=== PATIENT | male | born 1960 | race African-American/Black ===

== ENCOUNTER 2020-10-08 15:06 | Inpatient (IN) | payer OTHER ==
[2020-10-08 16:15] VITALS: BMI 27.8
[2020-10-08] MEDS ORDERED: ACETAMINOPHEN 325 MG TABLET (FP) PO PRN (17:35)
[2020-10-08] MEDS ORDERED: NICOTINE POLACRILEX 2 MG GUM BUC PRN (17:35)
[2020-10-08] MEDS ORDERED: chlordiazePOXIDE HCL 25 MG CAPSULE PO PRN (17:35)
[2020-10-08] MEDS ORDERED: BISMUTH SUBSALICYLATE 524 MG/30 ML UD PO PRN (17:35)
[2020-10-08] MEDS ORDERED: METHOCARBAMOL 500 MG TABLET PO PRN (17:35)
[2020-10-08] MEDS ORDERED: chlordiazePOXIDE HCL 25 MG CAPSULE PO ONE (17:35)
[2020-10-08] MEDS ORDERED: MAGNESIUM HYDROX 2400MG/30ML ORAL SUSPENSION 30 ML CUP PO PRN (17:35)
[2020-10-08] MEDS ORDERED: ONDANSETRON *ODT* 4 MG TABLET SL PRN (17:35)
[2020-10-08] MEDS ORDERED: MAG HYDROX/AL HYDROX/SIMETH 30 ML UNIT-DOSE CUP PO PRN (17:35)
[2020-10-08] MEDS ORDERED: MENTHOL/PHENOL 1 EACH UD MM PRN (17:35)
[2020-10-08] MEDS ORDERED: MAGNESIUM CITRATE 300 ML BOTTLE PO PRN (17:35)
[2020-10-08] MEDS ORDERED: AMMONIUM LACTATE 12% LOTION 225 GM BOTTLE TP PRN (17:41)
[2020-10-08] MEDS ORDERED: PATIENT'S OWN MEDICATION (NON-FORMULARY) (Ipratropium/Albuterol Sulfate 4 GM) IH PRN (17:43)
[2020-10-08] MEDS ORDERED: NITROGLYCERIN SUBLINGUAL 1/150 0.4 MG TAB SL PRN (17:46)
[2020-10-08] MEDS: ACETAMINOPHEN 325 MG TABLET (FP) PO PRN (20:32)
[2020-10-08] MEDS ORDERED: cloNIDine HCL 0.1 MG TABLET PO ONE (21:47)
[2020-10-08] MEDS: chlordiazePOXIDE HCL 25 MG CAPSULE PO SCH (23:01)
[2020-10-08] MEDS: ATORVASTATIN CA 80 MG TABLET (FP) PO SCH (23:01)
[2020-10-08] MEDS: THIAMINE HCL 100 MG TABLET (FP) PO SCH (23:02)
[2020-10-08] MEDS: MELATONIN 5 MG TABLETS PO SCH (23:02)
[2020-10-09] MEDS: chlordiazePOXIDE HCL 25 MG CAPSULE PO SCH ×4 (05:59→22:14)
[2020-10-09] MEDS ORDERED: SACUBITRIL/VALSARTAN 49 MG-51 MG TABLET PO SCH (10:00)
[2020-10-09] MEDS ORDERED: amLODIPine BESYLATE 5 MG TABLET (FP) PO SCH (10:00)
[2020-10-09] MEDS: PRENATAL VITAMINS W/ FOLIC ACID TABLET (FP) PO SCH (10:26)
[2020-10-09] MEDS: ASPIRIN 81 MG CHEWABLE TABLETS PO SCH (10:26)
[2020-10-09] MEDS: NICOTINE 7 MG/24 HOURS TOPICAL PATCH TD SCH (10:27)
[2020-10-09] MEDS: CARVEDILOL 3.125 MG TABLET (FP) PO SCH ×2 (10:27→22:14)
[2020-10-09 11:56] LABS: HEMATOCRIT 37.4 % (35.4-49); HEMOGLOBIN 12.5 GM/dL (11.7-16.9); MCH 33.6 pg (25.7-33.7); MCHC 33.4 g/dl (32.0-35.9); MEAN CELL VOLUME 100.6 fl (80-96); MEAN PLT VOLUME 9.7 fl (7.5-11.1); PLATELET COUNT 203 K/MM3 (134-434); RBC 3.72 M/mm3 (4.00-5.60); RDW 16.5 % (11.9-15.9); WHITE BLOOD COUNT 10.1 K/mm3 (4.0-10.0)
[2020-10-09 12:01] LABS: POTASSIUM 3.8 mmol/L (3.5-5.1)
[2020-10-09 12:20] LABS: CALCIUM 9.2 mg/dL (8.5-10.1)
[2020-10-09 12:21] LABS: ALBUMIN 3.5 g/dl (3.4-5.0); BLOOD UREA NITROGEN 13.3 mg/dL (7-18)
[2020-10-09 12:24] LABS: CREATININE 1.4 mg/dL (0.55-1.3)
[2020-10-09 12:25] LABS: BILIRUBIN,TOTAL 0.5 mg/dL (0.2-1); TOT PROT 6.8 g/dl (6.4-8.2)
[2020-10-09 16:59] LABS: PH,URINE 5.5 (5.0-8.0); URINE APPEARANCE CLEAR; URINE BILIRUBIN NEGATIVE (NEGATIVE); URINE COLOR YELLOW; URINE GLUCOSE (UA) NEGATIVE (NEGATIVE); URINE KETONE NEGATIVE (NEGATIVE); URINE LEUK ESTERASE NEGATIVE (NEGATIVE); URINE NITRITE NEGATIVE (NEGATIVE); URINE PROTEIN NEGATIVE (NEGATIVE); URINE UROBILINOGEN 0.2 mg/dL (0.2-1.0)
[2020-10-09] MEDS: ATORVASTATIN CA 80 MG TABLET (FP) PO SCH (22:14)
[2020-10-09] MEDS: THIAMINE HCL 100 MG TABLET (FP) PO SCH (22:14)
[2020-10-09] MEDS: MELATONIN 5 MG TABLETS PO SCH (22:14)
[2020-10-09] MEDS: ISOSORBIDE MONONITRATE 20 MG TABLET PO SCH ×3 (22:52→23:23)
[2020-10-09] MEDS: DIVALPROEX SODIUM 500 MG TABLET E.C. PO SCH (23:22)
[2020-10-10] MEDS: chlordiazePOXIDE HCL 25 MG CAPSULE PO SCH ×4 (05:59→22:10)
[2020-10-10] MEDS: ISOSORBIDE MONONITRATE 20 MG TABLET PO SCH ×2 (07:27→15:04)
[2020-10-10] MEDS: DIVALPROEX SODIUM 500 MG TABLET E.C. PO SCH (10:14)
[2020-10-10] MEDS: PRENATAL VITAMINS W/ FOLIC ACID TABLET (FP) PO SCH (10:15)
[2020-10-10] MEDS: NICOTINE 7 MG/24 HOURS TOPICAL PATCH TD SCH (10:15)
[2020-10-10] MEDS: SACUBITRIL/VALSARTAN 49 MG-51 MG TABLET PO SCH ×2 (10:17→22:11)
[2020-10-10] MEDS: amLODIPine BESYLATE 10 MG TABLET (FP) PO SCH (10:17)
[2020-10-10] MEDS: ASPIRIN 81 MG CHEWABLE TABLETS PO SCH (10:18)
[2020-10-10] MEDS: CARVEDILOL 3.125 MG TABLET (FP) PO SCH ×2 (10:18→22:11)
[2020-10-10] MEDS: ACETAMINOPHEN 325 MG TABLET (FP) PO PRN (19:20)
[2020-10-10] MEDS: THIAMINE HCL 100 MG TABLET (FP) PO SCH (22:11)
[2020-10-10] MEDS: ATORVASTATIN CA 80 MG TABLET (FP) PO SCH (22:11)
[2020-10-10] MEDS: MELATONIN 5 MG TABLETS PO SCH (22:11)
[2020-10-11] MEDS ORDERED: chlordiazePOXIDE HCL 10 MG CAPSULE PO PRN
[2020-10-11] MEDS: chlordiazePOXIDE HCL 10 MG CAPSULE PO SCH ×4 (05:18→22:04)
[2020-10-11] MEDS: ISOSORBIDE MONONITRATE 20 MG TABLET PO SCH ×2 (07:55→15:35)
[2020-10-11] MEDS: NICOTINE 7 MG/24 HOURS TOPICAL PATCH TD SCH (10:37)
[2020-10-11] MEDS: SACUBITRIL/VALSARTAN 49 MG-51 MG TABLET PO SCH ×2 (10:37→22:05)
[2020-10-11] MEDS: ASPIRIN 81 MG CHEWABLE TABLETS PO SCH (10:37)
[2020-10-11] MEDS: DIVALPROEX SODIUM 500 MG TABLET E.C. PO SCH (10:37)
[2020-10-11] MEDS: amLODIPine BESYLATE 10 MG TABLET (FP) PO SCH (10:37)
[2020-10-11] MEDS: PRENATAL VITAMINS W/ FOLIC ACID TABLET (FP) PO SCH (10:37)
[2020-10-11] MEDS: CARVEDILOL 3.125 MG TABLET (FP) PO SCH ×2 (10:37→22:04)
[2020-10-11] MEDS: ACETAMINOPHEN 325 MG TABLET (FP) PO PRN (10:38)
[2020-10-11] MEDS: MELATONIN 5 MG TABLETS PO SCH (22:04)
[2020-10-11] MEDS: ATORVASTATIN CA 80 MG TABLET (FP) PO SCH (22:04)
[2020-10-11] MEDS: THIAMINE HCL 100 MG TABLET (FP) PO SCH (22:04)
[2020-10-12] MEDS: chlordiazePOXIDE HCL 10 MG CAPSULE PO SCH ×2 (05:21→17:15)
[2020-10-12] MEDS: ISOSORBIDE MONONITRATE 20 MG TABLET PO SCH ×2 (07:39→15:08)
[2020-10-12] MEDS: CARVEDILOL 3.125 MG TABLET (FP) PO SCH ×2 (10:08→22:05)
[2020-10-12] MEDS: SACUBITRIL/VALSARTAN 49 MG-51 MG TABLET PO SCH ×2 (10:08→22:06)
[2020-10-12] MEDS: ASPIRIN 81 MG CHEWABLE TABLETS PO SCH (10:08)
[2020-10-12] MEDS: amLODIPine BESYLATE 10 MG TABLET (FP) PO SCH (10:08)
[2020-10-12] MEDS: DIVALPROEX SODIUM 500 MG TABLET E.C. PO SCH (10:08)
[2020-10-12] MEDS: NICOTINE 7 MG/24 HOURS TOPICAL PATCH TD SCH (10:09)
[2020-10-12] MEDS: PRENATAL VITAMINS W/ FOLIC ACID TABLET (FP) PO SCH (10:09)
[2020-10-12] MEDS: ATORVASTATIN CA 80 MG TABLET (FP) PO SCH (22:05)
[2020-10-12] MEDS: THIAMINE HCL 100 MG TABLET (FP) PO SCH (22:05)
[2020-10-12] MEDS: MELATONIN 5 MG TABLETS PO SCH (22:06)
[2020-10-13] MEDS ORDERED: chlordiazePOXIDE HCL 10 MG CAPSULE PO ONE (05:00)
[2020-10-13] MEDS: ISOSORBIDE MONONITRATE 20 MG TABLET PO SCH (07:00)
[2020-10-13 09:04] VITALS: TEMP 97.3
[2020-10-13 09:06] VITALS: BP 124/88; PULSE 90
[2020-10-13] MEDS: SACUBITRIL/VALSARTAN 49 MG-51 MG TABLET PO SCH (10:08)
[2020-10-13] MEDS: PRENATAL VITAMINS W/ FOLIC ACID TABLET (FP) PO SCH (10:08)
[2020-10-13] MEDS: ASPIRIN 81 MG CHEWABLE TABLETS PO SCH (10:08)
[2020-10-13] MEDS: CARVEDILOL 3.125 MG TABLET (FP) PO SCH (10:08)
[2020-10-13] MEDS: amLODIPine BESYLATE 10 MG TABLET (FP) PO SCH (10:08)
[2020-10-13] MEDS: NICOTINE 7 MG/24 HOURS TOPICAL PATCH TD SCH (10:09)
[2020-10-13] MEDS: DIVALPROEX SODIUM 500 MG TABLET E.C. PO SCH (10:09)
== END 2020-10-13 11:53 | disposition other institution (70) | DRG 774 ==
LOC: YASAS 15:06 → Y3N 17:23
PROVIDERS: ADMIT Allergy & Immunology; ATTEND Allergy & Immunology
PROC: HZ2ZZZZ Detoxification Services for Substance Abuse Treatment (ICD-10-PCS; principal; 2020-10-08)
DX: F10.230 Alcohol dependence with withdrawal, uncomplicated (principal); F14.10 Cocaine abuse, uncomplicated; F12.10 Cannabis abuse, uncomplicated; F17.210 Nicotine dependence, cigarettes, uncomplicated; F19.24 Other psychoactive substance dependence with psychoactive substance-induced mood disorder; I25.119 Atherosclerotic heart disease of native coronary artery with unspecified angina pectoris; I11.0 Hypertensive heart disease with heart failure; I50.9 Heart failure, unspecified; I51.7 Cardiomegaly; G40.909 Epilepsy, unspecified, not intractable, without status epilepticus; J44.9 Chronic obstructive pulmonary disease, unspecified; Z95.810 Presence of automatic (implantable) cardiac defibrillator; Z87.820 Personal history of traumatic brain injury; Z88.0 Allergy status to penicillin; Z91.012 Allergy to eggs; Z88.1 Allergy status to other antibiotic agents; Z91.013 Allergy to seafood; Z98.890 Other specified postprocedural states
CPT/HCPCS: 36415; 80053; 80164; 81003; 85027; 86593; 86780; 93005; 93010; C9803; J0735; U0003

== ENCOUNTER 2020-10-13 12:28 | Inpatient (IN) | payer OTHER ==
[2020-10-13] MEDS ORDERED: MAG HYDROX/AL HYDROX/SIMETH 30 ML UNIT-DOSE CUP PO PRN (13:47)
[2020-10-13] MEDS ORDERED: NICOTINE POLACRILEX 2 MG GUM BUC PRN (13:47)
[2020-10-13] MEDS ORDERED: IBUPROFEN 400 MG TABLET (FP) PO PRN (13:47)
[2020-10-13] MEDS ORDERED: MAGNESIUM CITRATE 300 ML BOTTLE PO PRN (13:47)
[2020-10-13] MEDS ORDERED: MAGNESIUM HYDROX 2400MG/30ML ORAL SUSPENSION 30 ML CUP PO PRN (13:47)
[2020-10-13] MEDS ORDERED: LOPERAMIDE HCL 2 MG CAPSULE PO PRN (13:47)
[2020-10-13] MEDS ORDERED: P-EPHED 60MG/TRIPROLIDI 2.5MG TABLET PO PRN (13:47)
[2020-10-13] MEDS ORDERED: guaiFENesin 200 MG/10 ML 10 ML UNIT-DOSE CUPS PO PRN (13:47)
[2020-10-13] MEDS ORDERED: ACETAMINOPHEN 325 MG TABLET (FP) PO PRN (13:47)
[2020-10-13] MEDS ORDERED: PATIENT'S OWN MEDICATION (NON-FORMULARY) (Ipratropium/Albuterol Sulfate 1 PUFF Inhaler) IH PRN (13:49)
[2020-10-13] MEDS ORDERED: NITROGLYCERIN SUBLINGUAL 1/150 0.4 MG TAB SL PRN (13:54)
[2020-10-13] MEDS ORDERED: PATIENT'S OWN MEDICATION (NON-FORMULARY) (Ipratropium/Albuterol Sulfate 1 PUFF) IH PRN (14:26)
[2020-10-13] MEDS: THIAMINE HCL 100 MG TABLET (FP) PO SCH (21:38)
[2020-10-13] MEDS: ATORVASTATIN CA 80 MG TABLET (FP) PO SCH (21:38)
[2020-10-13] MEDS: SACUBITRIL/VALSARTAN 49 MG-51 MG TABLET PO SCH (21:38)
[2020-10-13] MEDS: CARVEDILOL 3.125 MG TABLET (FP) PO SCH (21:38)
[2020-10-13] MEDS: AMMONIUM LACTATE 12% LOTION 225 GM BOTTLE TP SCH (21:39)
[2020-10-13] MEDS: MELATONIN 5 MG TABLETS PO SCH (21:39)
[2020-10-13] MEDS: ISOSORBIDE MONONITRATE 20 MG TABLET PO SCH (21:42)
[2020-10-14] MEDS: PRENATAL VITAMINS W/ FOLIC ACID TABLET (FP) PO SCH (09:27)
[2020-10-14] MEDS: ASPIRIN 81 MG CHEWABLE TABLETS PO SCH (09:27)
[2020-10-14] MEDS: DIVALPROEX SODIUM 500 MG TABLET E.C. PO SCH (09:27)
[2020-10-14] MEDS: SACUBITRIL/VALSARTAN 49 MG-51 MG TABLET PO SCH ×2 (09:28→21:11)
[2020-10-14] MEDS: ISOSORBIDE MONONITRATE 20 MG TABLET PO SCH ×2 (09:28→21:12)
[2020-10-14] MEDS: AMMONIUM LACTATE 12% LOTION 225 GM BOTTLE TP SCH ×2 (09:29→21:12)
[2020-10-14] MEDS: CARVEDILOL 3.125 MG TABLET (FP) PO SCH ×2 (09:29→21:11)
[2020-10-14] MEDS ORDERED: SACUBITRIL/VALSARTAN 49 MG-51 MG TABLET PO SCH (10:00)
[2020-10-14] MEDS ORDERED: NICOTINE 7 MG/24 HOURS TOPICAL PATCH TD SCH (10:00)
[2020-10-14] MEDS ORDERED: ATORVASTATIN CA 40 MG TABLET (FP) ONE (20:20)
[2020-10-14] MEDS: THIAMINE HCL 100 MG TABLET (FP) PO SCH (21:11)
[2020-10-14] MEDS: ATORVASTATIN CA 80 MG TABLET (FP) PO SCH (21:11)
[2020-10-14] MEDS: MELATONIN 5 MG TABLETS PO SCH (21:11)
[2020-10-15] MEDS: ISOSORBIDE MONONITRATE 20 MG TABLET PO SCH ×2 (09:30→22:17)
[2020-10-15] MEDS: ASPIRIN 81 MG CHEWABLE TABLETS PO SCH (09:30)
[2020-10-15] MEDS: DIVALPROEX SODIUM 500 MG TABLET E.C. PO SCH (09:30)
[2020-10-15] MEDS: PRENATAL VITAMINS W/ FOLIC ACID TABLET (FP) PO SCH (09:30)
[2020-10-15] MEDS: CARVEDILOL 3.125 MG TABLET (FP) PO SCH ×2 (09:31→22:17)
[2020-10-15] MEDS: AMMONIUM LACTATE 12% LOTION 225 GM BOTTLE TP SCH ×2 (09:31→22:17)
[2020-10-15] MEDS: SACUBITRIL/VALSARTAN 49 MG-51 MG TABLET PO SCH ×2 (09:31→22:17)
[2020-10-15] MEDS ORDERED: NICOTINE 7 MG/24 HOURS TOPICAL PATCH TD SCH (11:30)
[2020-10-15] MEDS ORDERED: ATORVASTATIN CA 40 MG TABLET (FP) ONE (19:10)
[2020-10-15] MEDS: THIAMINE HCL 100 MG TABLET (FP) PO SCH (22:16)
[2020-10-15] MEDS: MELATONIN 5 MG TABLETS PO SCH (22:16)
[2020-10-15] MEDS: ATORVASTATIN CA 80 MG TABLET (FP) PO SCH (22:16)
[2020-10-16] MEDS: ASPIRIN 81 MG CHEWABLE TABLETS PO SCH (09:25)
[2020-10-16] MEDS: DIVALPROEX SODIUM 500 MG TABLET E.C. PO SCH (09:25)
[2020-10-16] MEDS: PRENATAL VITAMINS W/ FOLIC ACID TABLET (FP) PO SCH (09:25)
[2020-10-16] MEDS: ISOSORBIDE MONONITRATE 20 MG TABLET PO SCH ×2 (09:26→21:01)
[2020-10-16] MEDS: AMMONIUM LACTATE 12% LOTION 225 GM BOTTLE TP SCH ×2 (09:26→21:01)
[2020-10-16] MEDS: SACUBITRIL/VALSARTAN 49 MG-51 MG TABLET PO SCH ×2 (09:27→21:01)
[2020-10-16] MEDS: CARVEDILOL 3.125 MG TABLET (FP) PO SCH ×2 (09:31→21:01)
[2020-10-16] MEDS: THIAMINE HCL 100 MG TABLET (FP) PO SCH (21:01)
[2020-10-16] MEDS: MELATONIN 5 MG TABLETS PO SCH (21:01)
[2020-10-16] MEDS: ATORVASTATIN CA 80 MG TABLET (FP) PO SCH (21:02)
[2020-10-17] MEDS: CARVEDILOL 3.125 MG TABLET (FP) PO SCH ×2 (09:20→21:54)
[2020-10-17] MEDS: SACUBITRIL/VALSARTAN 49 MG-51 MG TABLET PO SCH ×2 (09:21→21:55)
[2020-10-17] MEDS: DIVALPROEX SODIUM 500 MG TABLET E.C. PO SCH (09:21)
[2020-10-17] MEDS: ISOSORBIDE MONONITRATE 20 MG TABLET PO SCH ×2 (09:21→21:54)
[2020-10-17] MEDS: ASPIRIN 81 MG CHEWABLE TABLETS PO SCH (09:21)
[2020-10-17] MEDS: PRENATAL VITAMINS W/ FOLIC ACID TABLET (FP) PO SCH (09:22)
[2020-10-17] MEDS: AMMONIUM LACTATE 12% LOTION 225 GM BOTTLE TP SCH ×2 (09:22→21:54)
[2020-10-17] MEDS: ATORVASTATIN CA 80 MG TABLET (FP) PO SCH (21:54)
[2020-10-17] MEDS: MELATONIN 5 MG TABLETS PO SCH (21:54)
[2020-10-17] MEDS: THIAMINE HCL 100 MG TABLET (FP) PO SCH (21:54)
[2020-10-18] MEDS: PRENATAL VITAMINS W/ FOLIC ACID TABLET (FP) PO SCH (09:41)
[2020-10-18] MEDS: ISOSORBIDE MONONITRATE 20 MG TABLET PO SCH ×2 (09:41→17:34)
[2020-10-18] MEDS: ASPIRIN 81 MG CHEWABLE TABLETS PO SCH (09:41)
[2020-10-18] MEDS: SACUBITRIL/VALSARTAN 49 MG-51 MG TABLET PO SCH ×2 (09:41→21:00)
[2020-10-18] MEDS: DIVALPROEX SODIUM 500 MG TABLET E.C. PO SCH (09:41)
[2020-10-18] MEDS: CARVEDILOL 3.125 MG TABLET (FP) PO SCH ×2 (09:41→21:00)
[2020-10-18] MEDS: AMMONIUM LACTATE 12% LOTION 225 GM BOTTLE TP SCH ×2 (09:43→21:00)
[2020-10-18] MEDS: MELATONIN 5 MG TABLETS PO SCH (21:00)
[2020-10-18] MEDS: ATORVASTATIN CA 80 MG TABLET (FP) PO SCH (21:00)
[2020-10-18] MEDS: THIAMINE HCL 100 MG TABLET (FP) PO SCH (21:00)
[2020-10-19] MEDS: ASPIRIN 81 MG CHEWABLE TABLETS PO SCH (09:22)
[2020-10-19] MEDS: AMMONIUM LACTATE 12% LOTION 225 GM BOTTLE TP SCH ×2 (09:22→21:59)
[2020-10-19] MEDS: DIVALPROEX SODIUM 500 MG TABLET E.C. PO SCH (09:22)
[2020-10-19] MEDS: SACUBITRIL/VALSARTAN 49 MG-51 MG TABLET PO SCH ×2 (09:22→21:58)
[2020-10-19] MEDS: PRENATAL VITAMINS W/ FOLIC ACID TABLET (FP) PO SCH (09:23)
[2020-10-19] MEDS: CARVEDILOL 3.125 MG TABLET (FP) PO SCH ×2 (09:23→21:58)
[2020-10-19] MEDS: ISOSORBIDE MONONITRATE 20 MG TABLET PO SCH ×2 (09:41→15:45)
[2020-10-19] MEDS ORDERED: COLLOIDAL OATMEAL 1 BAR EACH TP PRN (14:42)
[2020-10-19] MEDS: ATORVASTATIN CA 80 MG TABLET (FP) PO SCH (21:58)
[2020-10-19] MEDS: THIAMINE HCL 100 MG TABLET (FP) PO SCH (21:58)
[2020-10-19] MEDS: MELATONIN 5 MG TABLETS PO SCH (21:59)
[2020-10-20] MEDS: ISOSORBIDE MONONITRATE 20 MG TABLET PO SCH ×2 (08:14→14:31)
[2020-10-20] MEDS: PRENATAL VITAMINS W/ FOLIC ACID TABLET (FP) PO SCH (09:43)
[2020-10-20] MEDS: DIVALPROEX SODIUM 500 MG TABLET E.C. PO SCH (09:43)
[2020-10-20] MEDS: ASPIRIN 81 MG CHEWABLE TABLETS PO SCH (09:43)
[2020-10-20] MEDS: CARVEDILOL 3.125 MG TABLET (FP) PO SCH ×2 (09:44→21:06)
[2020-10-20] MEDS: SACUBITRIL/VALSARTAN 49 MG-51 MG TABLET PO SCH ×2 (09:44→21:06)
[2020-10-20] MEDS: AMMONIUM LACTATE 12% LOTION 225 GM BOTTLE TP SCH ×2 (09:45→22:19)
[2020-10-20] MEDS: MELATONIN 5 MG TABLETS PO SCH (21:06)
[2020-10-20] MEDS: ATORVASTATIN CA 80 MG TABLET (FP) PO SCH (21:06)
[2020-10-20] MEDS: THIAMINE HCL 100 MG TABLET (FP) PO SCH (21:06)
[2020-10-21] MEDS: ISOSORBIDE MONONITRATE 20 MG TABLET PO SCH ×2 (07:01→14:20)
[2020-10-21] MEDS: PRENATAL VITAMINS W/ FOLIC ACID TABLET (FP) PO SCH (09:23)
[2020-10-21] MEDS: ASPIRIN 81 MG CHEWABLE TABLETS PO SCH (09:23)
[2020-10-21] MEDS: CARVEDILOL 3.125 MG TABLET (FP) PO SCH ×2 (09:23→22:03)
[2020-10-21] MEDS: DIVALPROEX SODIUM 500 MG TABLET E.C. PO SCH (09:23)
[2020-10-21] MEDS: AMMONIUM LACTATE 12% LOTION 225 GM BOTTLE TP SCH ×2 (09:24→22:05)
[2020-10-21] MEDS: SACUBITRIL/VALSARTAN 49 MG-51 MG TABLET PO SCH ×2 (09:24→21:51)
[2020-10-21] MEDS ORDERED: ATORVASTATIN CA 40 MG TABLET (FP) ONE (19:53)
[2020-10-21] MEDS ORDERED: diphenhydrAMINE HCL 25 MG CAPSULE (FP) PO ONE (20:08)
[2020-10-21] MEDS: THIAMINE HCL 100 MG TABLET (FP) PO SCH (21:51)
[2020-10-21] MEDS: ATORVASTATIN CA 80 MG TABLET (FP) PO SCH (21:51)
[2020-10-21] MEDS: HYDROCORTISONE 0.5% TOPICAL CREAM 30 GM TUBE TP PRN (22:04)
[2020-10-21] MEDS: MELATONIN 5 MG TABLETS PO SCH (22:05)
[2020-10-22] MEDS: DIVALPROEX SODIUM 500 MG TABLET E.C. PO SCH (10:37)
[2020-10-22] MEDS: CARVEDILOL 3.125 MG TABLET (FP) PO SCH ×2 (10:37→21:08)
[2020-10-22] MEDS: ASPIRIN 81 MG CHEWABLE TABLETS PO SCH (10:37)
[2020-10-22] MEDS: SACUBITRIL/VALSARTAN 49 MG-51 MG TABLET PO SCH ×2 (10:38→21:09)
[2020-10-22] MEDS: AMMONIUM LACTATE 12% LOTION 225 GM BOTTLE TP SCH ×2 (10:39→21:09)
[2020-10-22] MEDS: PRENATAL VITAMINS W/ FOLIC ACID TABLET (FP) PO SCH (10:39)
[2020-10-22] MEDS: ISOSORBIDE MONONITRATE 20 MG TABLET PO SCH ×2 (10:39→15:30)
[2020-10-22] MEDS: HYDROCORTISONE 0.5% TOPICAL CREAM 30 GM TUBE TP PRN (18:07)
[2020-10-22] MEDS ORDERED: ATORVASTATIN CA 40 MG TABLET (FP) ONE (19:08)
[2020-10-22] MEDS: MELATONIN 5 MG TABLETS PO SCH (21:08)
[2020-10-22] MEDS: THIAMINE HCL 100 MG TABLET (FP) PO SCH (21:08)
[2020-10-22] MEDS: ATORVASTATIN CA 80 MG TABLET (FP) PO SCH (21:09)
[2020-10-23] MEDS: ISOSORBIDE MONONITRATE 20 MG TABLET PO SCH ×2 (08:15→16:24)
[2020-10-23] MEDS: ASPIRIN 81 MG CHEWABLE TABLETS PO SCH (10:01)
[2020-10-23] MEDS: DIVALPROEX SODIUM 500 MG TABLET E.C. PO SCH (10:01)
[2020-10-23] MEDS: SACUBITRIL/VALSARTAN 49 MG-51 MG TABLET PO SCH ×2 (10:02→21:47)
[2020-10-23] MEDS: CARVEDILOL 3.125 MG TABLET (FP) PO SCH ×2 (10:02→21:47)
[2020-10-23] MEDS: PRENATAL VITAMINS W/ FOLIC ACID TABLET (FP) PO SCH (10:02)
[2020-10-23] MEDS: AMMONIUM LACTATE 12% LOTION 225 GM BOTTLE TP SCH ×2 (10:03→21:51)
[2020-10-23] MEDS ORDERED: ATORVASTATIN CA 40 MG TABLET (FP) ONE (20:23)
[2020-10-23] MEDS: THIAMINE HCL 100 MG TABLET (FP) PO SCH (21:48)
[2020-10-23] MEDS: ATORVASTATIN CA 80 MG TABLET (FP) PO SCH (21:48)
[2020-10-23] MEDS: MELATONIN 5 MG TABLETS PO SCH (21:48)
[2020-10-23] MEDS: HYDROCORTISONE 0.5% TOPICAL CREAM 30 GM TUBE TP PRN (21:51)
[2020-10-24] MEDS: ISOSORBIDE MONONITRATE 20 MG TABLET PO SCH ×2 (07:19→14:04)
[2020-10-24] MEDS: PRENATAL VITAMINS W/ FOLIC ACID TABLET (FP) PO SCH (10:04)
[2020-10-24] MEDS: ASPIRIN 81 MG CHEWABLE TABLETS PO SCH (10:04)
[2020-10-24] MEDS: CARVEDILOL 3.125 MG TABLET (FP) PO SCH ×2 (10:04→21:13)
[2020-10-24] MEDS: DIVALPROEX SODIUM 500 MG TABLET E.C. PO SCH (10:04)
[2020-10-24] MEDS: AMMONIUM LACTATE 12% LOTION 225 GM BOTTLE TP SCH ×2 (10:04→21:13)
[2020-10-24] MEDS: SACUBITRIL/VALSARTAN 49 MG-51 MG TABLET PO SCH ×2 (10:05→21:13)
[2020-10-24] MEDS: MELATONIN 5 MG TABLETS PO SCH (21:13)
[2020-10-24] MEDS: THIAMINE HCL 100 MG TABLET (FP) PO SCH (21:13)
[2020-10-24] MEDS: HYDROCORTISONE 0.5% TOPICAL CREAM 30 GM TUBE TP PRN (21:13)
[2020-10-24] MEDS: ATORVASTATIN CA 80 MG TABLET (FP) PO SCH (21:13)
[2020-10-25] MEDS: ISOSORBIDE MONONITRATE 20 MG TABLET PO SCH ×2 (07:11→14:32)
[2020-10-25] MEDS: ASPIRIN 81 MG CHEWABLE TABLETS PO SCH (10:02)
[2020-10-25] MEDS: CARVEDILOL 3.125 MG TABLET (FP) PO SCH ×2 (10:02→21:40)
[2020-10-25] MEDS: PRENATAL VITAMINS W/ FOLIC ACID TABLET (FP) PO SCH (10:03)
[2020-10-25] MEDS: DIVALPROEX SODIUM 500 MG TABLET E.C. PO SCH (10:03)
[2020-10-25] MEDS: AMMONIUM LACTATE 12% LOTION 225 GM BOTTLE TP SCH ×2 (10:04→21:41)
[2020-10-25] MEDS: SACUBITRIL/VALSARTAN 49 MG-51 MG TABLET PO SCH ×2 (10:06→21:40)
[2020-10-25] MEDS: MELATONIN 5 MG TABLETS PO SCH (21:39)
[2020-10-25] MEDS: ATORVASTATIN CA 80 MG TABLET (FP) PO SCH (21:40)
[2020-10-25] MEDS: HYDROCORTISONE 0.5% TOPICAL CREAM 30 GM TUBE TP PRN (21:40)
[2020-10-25] MEDS: THIAMINE HCL 100 MG TABLET (FP) PO SCH (21:40)
[2020-10-26] MEDS: ISOSORBIDE MONONITRATE 20 MG TABLET PO SCH ×2 (07:48→14:26)
[2020-10-26] MEDS: ASPIRIN 81 MG CHEWABLE TABLETS PO SCH (09:58)
[2020-10-26] MEDS: SACUBITRIL/VALSARTAN 49 MG-51 MG TABLET PO SCH ×2 (09:59→21:12)
[2020-10-26] MEDS: CARVEDILOL 3.125 MG TABLET (FP) PO SCH ×2 (09:59→21:11)
[2020-10-26] MEDS: DIVALPROEX SODIUM 500 MG TABLET E.C. PO SCH (09:59)
[2020-10-26] MEDS: PRENATAL VITAMINS W/ FOLIC ACID TABLET (FP) PO SCH (09:59)
[2020-10-26] MEDS: AMMONIUM LACTATE 12% LOTION 225 GM BOTTLE TP SCH ×2 (09:59→21:11)
[2020-10-26] MEDS ORDERED: ATORVASTATIN CA 40 MG TABLET (FP) ONE (19:17)
[2020-10-26] MEDS: MELATONIN 5 MG TABLETS PO SCH (21:10)
[2020-10-26] MEDS: THIAMINE HCL 100 MG TABLET (FP) PO SCH (21:10)
[2020-10-26] MEDS: ATORVASTATIN CA 80 MG TABLET (FP) PO SCH (21:12)
[2020-10-27] MEDS: ISOSORBIDE MONONITRATE 20 MG TABLET PO SCH ×2 (07:13→15:56)
[2020-10-27] MEDS: CARVEDILOL 3.125 MG TABLET (FP) PO SCH ×2 (10:03→21:41)
[2020-10-27] MEDS: DIVALPROEX SODIUM 500 MG TABLET E.C. PO SCH (10:03)
[2020-10-27] MEDS: ASPIRIN 81 MG CHEWABLE TABLETS PO SCH (10:03)
[2020-10-27] MEDS: PRENATAL VITAMINS W/ FOLIC ACID TABLET (FP) PO SCH (10:03)
[2020-10-27] MEDS: SACUBITRIL/VALSARTAN 49 MG-51 MG TABLET PO SCH ×2 (10:03→21:53)
[2020-10-27] MEDS: AMMONIUM LACTATE 12% LOTION 225 GM BOTTLE TP SCH ×2 (10:04→21:43)
[2020-10-27] MEDS: THIAMINE HCL 100 MG TABLET (FP) PO SCH (21:41)
[2020-10-27] MEDS: ATORVASTATIN CA 80 MG TABLET (FP) PO SCH (21:41)
[2020-10-27] MEDS: MELATONIN 5 MG TABLETS PO SCH (21:41)
[2020-10-27] MEDS: HYDROCORTISONE 0.5% TOPICAL CREAM 30 GM TUBE TP PRN (21:43)
[2020-10-28] MEDS: ISOSORBIDE MONONITRATE 20 MG TABLET PO SCH ×2 (07:02→14:23)
[2020-10-28] MEDS: PRENATAL VITAMINS W/ FOLIC ACID TABLET (FP) PO SCH (10:08)
[2020-10-28] MEDS: DIVALPROEX SODIUM 500 MG TABLET E.C. PO SCH (10:08)
[2020-10-28] MEDS: SACUBITRIL/VALSARTAN 49 MG-51 MG TABLET PO SCH ×2 (10:08→21:35)
[2020-10-28] MEDS: ASPIRIN 81 MG CHEWABLE TABLETS PO SCH (10:08)
[2020-10-28] MEDS: CARVEDILOL 3.125 MG TABLET (FP) PO SCH ×2 (10:08→21:34)
[2020-10-28] MEDS: AMMONIUM LACTATE 12% LOTION 225 GM BOTTLE TP SCH (10:09)
[2020-10-28] MEDS: MINERAL OIL/PETROLAT/WATER TOPICAL CREAM 113 GM JAR TP SCH (12:26)
[2020-10-28] MEDS: diphenhydrAMINE HCL 25 MG CAPSULE (FP) PO PRN ×2 (12:26→21:36)
[2020-10-28] MEDS: ATORVASTATIN CA 80 MG TABLET (FP) PO SCH (21:34)
[2020-10-28] MEDS: MELATONIN 5 MG TABLETS PO SCH (21:34)
[2020-10-28] MEDS: THIAMINE HCL 100 MG TABLET (FP) PO SCH (21:34)
[2020-10-29] MEDS: SACUBITRIL/VALSARTAN 49 MG-51 MG TABLET PO SCH ×2 (10:35→21:41)
[2020-10-29] MEDS: PRENATAL VITAMINS W/ FOLIC ACID TABLET (FP) PO SCH (10:35)
[2020-10-29] MEDS: DIVALPROEX SODIUM 500 MG TABLET E.C. PO SCH (10:35)
[2020-10-29] MEDS: ASPIRIN 81 MG CHEWABLE TABLETS PO SCH (10:35)
[2020-10-29] MEDS: CARVEDILOL 3.125 MG TABLET (FP) PO SCH ×2 (10:36→21:41)
[2020-10-29] MEDS: MINERAL OIL/PETROLAT/WATER TOPICAL CREAM 113 GM JAR TP SCH (10:37)
[2020-10-29] MEDS: ISOSORBIDE MONONITRATE 20 MG TABLET PO SCH ×2 (10:37→14:32)
[2020-10-29] MEDS: diphenhydrAMINE HCL 25 MG CAPSULE (FP) PO PRN ×2 (10:39→21:41)
[2020-10-29] MEDS: MELATONIN 5 MG TABLETS PO SCH (21:41)
[2020-10-29] MEDS: ATORVASTATIN CA 80 MG TABLET (FP) PO SCH (21:41)
[2020-10-29] MEDS: THIAMINE HCL 100 MG TABLET (FP) PO SCH (21:41)
[2020-10-30] MEDS: HYDROCORTISONE 0.5% TOPICAL CREAM 30 GM TUBE TP PRN (00:45)
[2020-10-30] MEDS: ISOSORBIDE MONONITRATE 20 MG TABLET PO SCH ×2 (07:09→14:39)
[2020-10-30] MEDS: CARVEDILOL 3.125 MG TABLET (FP) PO SCH ×2 (11:04→21:18)
[2020-10-30] MEDS: DIVALPROEX SODIUM 500 MG TABLET E.C. PO SCH (11:05)
[2020-10-30] MEDS: ASPIRIN 81 MG CHEWABLE TABLETS PO SCH (11:05)
[2020-10-30] MEDS: PRENATAL VITAMINS W/ FOLIC ACID TABLET (FP) PO SCH (11:06)
[2020-10-30] MEDS: MINERAL OIL/PETROLAT/WATER TOPICAL CREAM 113 GM JAR TP SCH (11:06)
[2020-10-30] MEDS: SACUBITRIL/VALSARTAN 49 MG-51 MG TABLET PO SCH ×2 (11:06→21:18)
[2020-10-30] MEDS ORDERED: ATORVASTATIN CA 40 MG TABLET (FP) ONE (19:12)
[2020-10-30] MEDS: MELATONIN 5 MG TABLETS PO SCH (21:17)
[2020-10-30] MEDS: THIAMINE HCL 100 MG TABLET (FP) PO SCH (21:17)
[2020-10-30] MEDS: ATORVASTATIN CA 80 MG TABLET (FP) PO SCH (21:18)
[2020-10-31] MEDS: ISOSORBIDE MONONITRATE 20 MG TABLET PO SCH ×2 (07:14→14:48)
[2020-10-31] MEDS: PRENATAL VITAMINS W/ FOLIC ACID TABLET (FP) PO SCH (10:01)
[2020-10-31] MEDS: CARVEDILOL 3.125 MG TABLET (FP) PO SCH ×2 (10:01→21:54)
[2020-10-31] MEDS: DIVALPROEX SODIUM 500 MG TABLET E.C. PO SCH (10:01)
[2020-10-31] MEDS: SACUBITRIL/VALSARTAN 49 MG-51 MG TABLET PO SCH ×2 (10:01→21:55)
[2020-10-31] MEDS: MINERAL OIL/PETROLAT/WATER TOPICAL CREAM 113 GM JAR TP SCH (10:02)
[2020-10-31] MEDS: ASPIRIN 81 MG CHEWABLE TABLETS PO SCH (10:03)
[2020-10-31] MEDS ORDERED: ATORVASTATIN CA 20 MG TABLET (FP) ONE (19:21)
[2020-10-31] MEDS: diphenhydrAMINE HCL 25 MG CAPSULE (FP) PO PRN (21:54)
[2020-10-31] MEDS: THIAMINE HCL 100 MG TABLET (FP) PO SCH (21:55)
[2020-10-31] MEDS: MELATONIN 5 MG TABLETS PO SCH (21:55)
[2020-10-31] MEDS: ATORVASTATIN CA 80 MG TABLET (FP) PO SCH (21:55)
[2020-11-01] MEDS: ISOSORBIDE MONONITRATE 20 MG TABLET PO SCH ×2 (08:29→16:30)
[2020-11-01] MEDS: ASPIRIN 81 MG CHEWABLE TABLETS PO SCH (10:15)
[2020-11-01] MEDS: DIVALPROEX SODIUM 500 MG TABLET E.C. PO SCH (10:15)
[2020-11-01] MEDS: SACUBITRIL/VALSARTAN 49 MG-51 MG TABLET PO SCH ×2 (10:15→21:24)
[2020-11-01] MEDS: MINERAL OIL/PETROLAT/WATER TOPICAL CREAM 113 GM JAR TP SCH (10:16)
[2020-11-01] MEDS: PRENATAL VITAMINS W/ FOLIC ACID TABLET (FP) PO SCH (10:16)
[2020-11-01] MEDS: CARVEDILOL 3.125 MG TABLET (FP) PO SCH ×2 (10:16→21:24)
[2020-11-01] MEDS: THIAMINE HCL 100 MG TABLET (FP) PO SCH (21:24)
[2020-11-01] MEDS: MELATONIN 5 MG TABLETS PO SCH (21:24)
[2020-11-01] MEDS: diphenhydrAMINE HCL 25 MG CAPSULE (FP) PO PRN (21:24)
[2020-11-01] MEDS: ATORVASTATIN CA 80 MG TABLET (FP) PO SCH (21:24)
[2020-11-02] MEDS: ISOSORBIDE MONONITRATE 20 MG TABLET PO SCH ×2 (07:20→14:09)
[2020-11-02] MEDS: DIVALPROEX SODIUM 500 MG TABLET E.C. PO SCH (10:20)
[2020-11-02] MEDS: SACUBITRIL/VALSARTAN 49 MG-51 MG TABLET PO SCH ×2 (10:20→22:06)
[2020-11-02] MEDS: ASPIRIN 81 MG CHEWABLE TABLETS PO SCH (10:20)
[2020-11-02] MEDS: PRENATAL VITAMINS W/ FOLIC ACID TABLET (FP) PO SCH (10:20)
[2020-11-02] MEDS: CARVEDILOL 3.125 MG TABLET (FP) PO SCH ×2 (10:21→22:05)
[2020-11-02] MEDS: MINERAL OIL/PETROLAT/WATER TOPICAL CREAM 113 GM JAR TP SCH (10:22)
[2020-11-02] MEDS: HYDROCORTISONE 0.5% TOPICAL CREAM 30 GM TUBE TP PRN (10:22)
[2020-11-02] MEDS: ATORVASTATIN CA 80 MG TABLET (FP) PO SCH (22:05)
[2020-11-02] MEDS: diphenhydrAMINE HCL 25 MG CAPSULE (FP) PO PRN (22:05)
[2020-11-02] MEDS: THIAMINE HCL 100 MG TABLET (FP) PO SCH (22:05)
[2020-11-02] MEDS: MELATONIN 5 MG TABLETS PO SCH (22:06)
[2020-11-03] MEDS: ISOSORBIDE MONONITRATE 20 MG TABLET PO SCH ×2 (07:07→16:06)
[2020-11-03] MEDS: CARVEDILOL 3.125 MG TABLET (FP) PO SCH ×2 (10:46→21:12)
[2020-11-03] MEDS: ASPIRIN 81 MG CHEWABLE TABLETS PO SCH (10:46)
[2020-11-03] MEDS: DIVALPROEX SODIUM 500 MG TABLET E.C. PO SCH (10:46)
[2020-11-03] MEDS: PRENATAL VITAMINS W/ FOLIC ACID TABLET (FP) PO SCH (10:46)
[2020-11-03] MEDS: SACUBITRIL/VALSARTAN 49 MG-51 MG TABLET PO SCH ×2 (10:48→21:12)
[2020-11-03] MEDS: MINERAL OIL/PETROLAT/WATER TOPICAL CREAM 113 GM JAR TP SCH (10:49)
[2020-11-03] MEDS: MELATONIN 5 MG TABLETS PO SCH (21:11)
[2020-11-03] MEDS: THIAMINE HCL 100 MG TABLET (FP) PO SCH (21:11)
[2020-11-03] MEDS: ATORVASTATIN CA 80 MG TABLET (FP) PO SCH (21:12)
[2020-11-03] MEDS: diphenhydrAMINE HCL 25 MG CAPSULE (FP) PO PRN (21:12)
[2020-11-04] MEDS: ISOSORBIDE MONONITRATE 20 MG TABLET PO SCH ×2 (07:48→14:41)
[2020-11-04] MEDS: DIVALPROEX SODIUM 500 MG TABLET E.C. PO SCH (10:22)
[2020-11-04] MEDS: ASPIRIN 81 MG CHEWABLE TABLETS PO SCH (10:22)
[2020-11-04] MEDS: SACUBITRIL/VALSARTAN 49 MG-51 MG TABLET PO SCH ×2 (10:23→22:13)
[2020-11-04] MEDS: PRENATAL VITAMINS W/ FOLIC ACID TABLET (FP) PO SCH (10:23)
[2020-11-04] MEDS: CARVEDILOL 3.125 MG TABLET (FP) PO SCH ×2 (10:23→22:13)
[2020-11-04] MEDS: MINERAL OIL/PETROLAT/WATER TOPICAL CREAM 113 GM JAR TP SCH (10:24)
[2020-11-04] MEDS: ATORVASTATIN CA 80 MG TABLET (FP) PO SCH (22:13)
[2020-11-04] MEDS: MELATONIN 5 MG TABLETS PO SCH (22:13)
[2020-11-04] MEDS: THIAMINE HCL 100 MG TABLET (FP) PO SCH (22:13)
[2020-11-04] MEDS: diphenhydrAMINE HCL 25 MG CAPSULE (FP) PO PRN (22:13)
[2020-11-05] MEDS: ISOSORBIDE MONONITRATE 20 MG TABLET PO SCH ×2 (07:13→14:27)
[2020-11-05] MEDS: PRENATAL VITAMINS W/ FOLIC ACID TABLET (FP) PO SCH (10:45)
[2020-11-05] MEDS: ASPIRIN 81 MG CHEWABLE TABLETS PO SCH (10:45)
[2020-11-05] MEDS: CARVEDILOL 3.125 MG TABLET (FP) PO SCH ×2 (10:45→21:10)
[2020-11-05] MEDS: DIVALPROEX SODIUM 500 MG TABLET E.C. PO SCH (10:45)
[2020-11-05] MEDS: SACUBITRIL/VALSARTAN 49 MG-51 MG TABLET PO SCH ×2 (10:46→21:10)
[2020-11-05] MEDS: MINERAL OIL/PETROLAT/WATER TOPICAL CREAM 113 GM JAR TP SCH (10:46)
[2020-11-05] MEDS ORDERED: ATORVASTATIN CA 40 MG TABLET (FP) ONE (20:35)
[2020-11-05] MEDS: ATORVASTATIN CA 80 MG TABLET (FP) PO SCH (21:10)
[2020-11-05] MEDS: THIAMINE HCL 100 MG TABLET (FP) PO SCH (21:10)
[2020-11-05] MEDS: MELATONIN 5 MG TABLETS PO SCH (21:10)
[2020-11-06] MEDS: ISOSORBIDE MONONITRATE 20 MG TABLET PO SCH ×2 (08:37→14:04)
[2020-11-06] MEDS: DIVALPROEX SODIUM 500 MG TABLET E.C. PO SCH (10:28)
[2020-11-06] MEDS: PRENATAL VITAMINS W/ FOLIC ACID TABLET (FP) PO SCH (10:28)
[2020-11-06] MEDS: ASPIRIN 81 MG CHEWABLE TABLETS PO SCH (10:28)
[2020-11-06] MEDS: SACUBITRIL/VALSARTAN 49 MG-51 MG TABLET PO SCH ×2 (10:28→21:44)
[2020-11-06] MEDS: CARVEDILOL 3.125 MG TABLET (FP) PO SCH ×2 (10:29→21:43)
[2020-11-06] MEDS: MINERAL OIL/PETROLAT/WATER TOPICAL CREAM 113 GM JAR TP SCH (10:30)
[2020-11-06] MEDS: ATORVASTATIN CA 80 MG TABLET (FP) PO SCH (21:43)
[2020-11-06] MEDS: MELATONIN 5 MG TABLETS PO SCH (21:43)
[2020-11-06] MEDS: THIAMINE HCL 100 MG TABLET (FP) PO SCH (21:43)
[2020-11-06] MEDS: diphenhydrAMINE HCL 25 MG CAPSULE (FP) PO PRN (21:43)
[2020-11-07] MEDS: ISOSORBIDE MONONITRATE 20 MG TABLET PO SCH ×2 (07:18→14:13)
[2020-11-07] MEDS: PRENATAL VITAMINS W/ FOLIC ACID TABLET (FP) PO SCH (10:49)
[2020-11-07] MEDS: ASPIRIN 81 MG CHEWABLE TABLETS PO SCH (10:49)
[2020-11-07] MEDS: DIVALPROEX SODIUM 500 MG TABLET E.C. PO SCH (10:49)
[2020-11-07] MEDS: SACUBITRIL/VALSARTAN 49 MG-51 MG TABLET PO SCH ×2 (10:49→21:11)
[2020-11-07] MEDS: CARVEDILOL 3.125 MG TABLET (FP) PO SCH ×2 (10:50→21:11)
[2020-11-07] MEDS: MINERAL OIL/PETROLAT/WATER TOPICAL CREAM 113 GM JAR TP SCH (10:51)
[2020-11-07] MEDS: diphenhydrAMINE HCL 25 MG CAPSULE (FP) PO PRN ×2 (10:52→21:11)
[2020-11-07] MEDS: ATORVASTATIN CA 80 MG TABLET (FP) PO SCH (21:10)
[2020-11-07] MEDS: THIAMINE HCL 100 MG TABLET (FP) PO SCH (21:10)
[2020-11-07] MEDS: MELATONIN 5 MG TABLETS PO SCH (21:11)
[2020-11-08] MEDS: ISOSORBIDE MONONITRATE 20 MG TABLET PO SCH ×2 (07:21→16:50)
[2020-11-08] MEDS: PRENATAL VITAMINS W/ FOLIC ACID TABLET (FP) PO SCH (10:40)
[2020-11-08] MEDS: DIVALPROEX SODIUM 500 MG TABLET E.C. PO SCH (10:40)
[2020-11-08] MEDS: ASPIRIN 81 MG CHEWABLE TABLETS PO SCH (10:40)
[2020-11-08] MEDS: SACUBITRIL/VALSARTAN 49 MG-51 MG TABLET PO SCH ×2 (10:40→21:36)
[2020-11-08] MEDS: MINERAL OIL/PETROLAT/WATER TOPICAL CREAM 113 GM JAR TP SCH (10:41)
[2020-11-08] MEDS: CARVEDILOL 3.125 MG TABLET (FP) PO SCH ×2 (10:41→21:36)
[2020-11-08] MEDS: THIAMINE HCL 100 MG TABLET (FP) PO SCH (21:36)
[2020-11-08] MEDS: diphenhydrAMINE HCL 25 MG CAPSULE (FP) PO PRN (21:36)
[2020-11-08] MEDS: MELATONIN 5 MG TABLETS PO SCH (21:36)
[2020-11-08] MEDS: ATORVASTATIN CA 80 MG TABLET (FP) PO SCH (21:36)
[2020-11-09] MEDS: ISOSORBIDE MONONITRATE 20 MG TABLET PO SCH ×2 (07:11→14:25)
[2020-11-09] MEDS: DIVALPROEX SODIUM 500 MG TABLET E.C. PO SCH (09:12)
[2020-11-09] MEDS: MINERAL OIL/PETROLAT/WATER TOPICAL CREAM 113 GM JAR TP SCH (09:12)
[2020-11-09] MEDS: SACUBITRIL/VALSARTAN 49 MG-51 MG TABLET PO SCH ×2 (09:12→21:31)
[2020-11-09] MEDS: ASPIRIN 81 MG CHEWABLE TABLETS PO SCH (09:12)
[2020-11-09] MEDS: PRENATAL VITAMINS W/ FOLIC ACID TABLET (FP) PO SCH (09:12)
[2020-11-09] MEDS: CARVEDILOL 3.125 MG TABLET (FP) PO SCH ×2 (09:13→21:30)
[2020-11-09] MEDS ORDERED: ATORVASTATIN CA 40 MG TABLET (FP) ONE (19:00)
[2020-11-09] MEDS: THIAMINE HCL 100 MG TABLET (FP) PO SCH (21:30)
[2020-11-09] MEDS: MELATONIN 5 MG TABLETS PO SCH (21:30)
[2020-11-09] MEDS: ATORVASTATIN CA 80 MG TABLET (FP) PO SCH (21:30)
[2020-11-09] MEDS: diphenhydrAMINE HCL 25 MG CAPSULE (FP) PO PRN (21:31)
[2020-11-10] MEDS: ISOSORBIDE MONONITRATE 20 MG TABLET PO SCH (07:18)
[2020-11-10] MEDS: ASPIRIN 81 MG CHEWABLE TABLETS PO SCH (09:01)
[2020-11-10] MEDS: PRENATAL VITAMINS W/ FOLIC ACID TABLET (FP) PO SCH (09:01)
[2020-11-10] MEDS: DIVALPROEX SODIUM 500 MG TABLET E.C. PO SCH (09:01)
[2020-11-10] MEDS: SACUBITRIL/VALSARTAN 49 MG-51 MG TABLET PO SCH (09:02)
[2020-11-10] MEDS: MINERAL OIL/PETROLAT/WATER TOPICAL CREAM 113 GM JAR TP SCH (09:02)
[2020-11-10] MEDS: CARVEDILOL 3.125 MG TABLET (FP) PO SCH (09:02)
[2020-11-10 11:09] VITALS: BP 151/77; PULSE 83; TEMP 97.1
== END 2020-11-10 09:10 | disposition home or self-care (01) | DRG 772 ==
LOC: YASAS 12:28 → Y5N 12:29
PROVIDERS: ADMIT Allergy & Immunology; ATTEND Allergy & Immunology
PROC: HZ42ZZZ Group Counseling for Substance Abuse Treatment, Cognitive-Behavioral (ICD-10-PCS; principal; 2020-10-13)
DX: F10.20 Alcohol dependence, uncomplicated (principal); F14.10 Cocaine abuse, uncomplicated; F12.10 Cannabis abuse, uncomplicated; F17.210 Nicotine dependence, cigarettes, uncomplicated; I10 Essential (primary) hypertension; I20.8 Other forms of angina pectoris; I42.2 Other hypertrophic cardiomyopathy; I25.118 Atherosclerotic heart disease of native coronary artery with other forms of angina pectoris; G40.909 Epilepsy, unspecified, not intractable, without status epilepticus; R21 Rash and other nonspecific skin eruption; L29.9 Pruritus, unspecified; R51.9 Headache, unspecified; Z86.79 Personal history of other diseases of the circulatory system; Z95.810 Presence of automatic (implantable) cardiac defibrillator; Z88.0 Allergy status to penicillin; Z88.1 Allergy status to other antibiotic agents; Z91.013 Allergy to seafood; Z91.012 Allergy to eggs
CPT/HCPCS: C9803; U0003

== ENCOUNTER 2022-01-18 12:55 | Inpatient (IN) | payer OTHER ==
[2022-01-18] MEDS ORDERED: ONDANSETRON *ODT* 4 MG TABLET SL PRN (13:37)
[2022-01-18] MEDS ORDERED: LORazepam 1 MG TABLET PO PRN (13:37)
[2022-01-18] MEDS ORDERED: MAG HYDROX/AL HYDROX/SIMETH 30 ML UNIT-DOSE CUP PO PRN (13:37)
[2022-01-18] MEDS ORDERED: MAGNESIUM CITRATE 300 ML BOTTLE PO PRN (13:37)
[2022-01-18] MEDS ORDERED: BISMUTH SUBSALICYLATE 524 MG/30 ML PO PRN (13:37)
[2022-01-18] MEDS ORDERED: LOPERAMIDE HCL 2 MG CAPSULE PO PRN (13:37)
[2022-01-18] MEDS ORDERED: MAGNESIUM HYDROX 2400MG/30ML ORAL SUSPENSION 30 ML CUP PO PRN (13:37)
[2022-01-18] MEDS ORDERED: MENTHOL/PHENOL 1 EACH UD MM PRN (13:37)
[2022-01-18] MEDS ORDERED: ACETAMINOPHEN 325 MG TABLET (FP) PO PRN ×2 (13:37)
[2022-01-18] MEDS ORDERED: IBUPROFEN 400 MG TABLET (FP) PO PRN (13:37)
[2022-01-18] MEDS ORDERED: METHOCARBAMOL 500 MG TABLET PO PRN (13:37)
[2022-01-18 14:24] VITALS: BMI 28.2
[2022-01-18] MEDS ORDERED: ISOSORBIDE MONONITRATE 20 MG TABLET PO SCH (15:00)
[2022-01-18] MEDS: hydrOXYzine PAMOATE 25 MG CAPSULE (FP) PO SCH ×3 (15:45→22:36)
[2022-01-18] MEDS ORDERED: ALBUTEROL SO4 HFA INHALER IH PRN (17:53)
[2022-01-18] MEDS: LORazepam 2 MG TABLET PO SCH ×2 (20:07→22:34)
[2022-01-18] MEDS ORDERED: DIVALPROEX SODIUM 500 MG TABLET E.C. PO SCH (22:00)
[2022-01-18] MEDS ORDERED: PATIENT'S OWN MEDICATION (NON-FORMULARY) (Ipratropium/Albuterol Sulfate 1 PUFF Inhaler) IH SCH (22:00)
[2022-01-18] MEDS ORDERED: ATORVASTATIN CA 80 MG TABLET (FP) PO SCH (22:00)
[2022-01-18] MEDS ORDERED: SPIRONOLACTONE 25 MG TABLET PO SCH (22:00)
[2022-01-18] MEDS ORDERED: CARVEDILOL 3.125 MG TABLET (FP) PO SCH (22:00)
[2022-01-18] MEDS: CARVEDILOL 3.125 MG TABLET (FP) PO SCH (22:34)
[2022-01-18] MEDS: NAPROXEN 500 MG TABLET PO SCH (22:35)
[2022-01-18] MEDS: GABAPENTIN 100 MG CAPSULE PO SCH (22:35)
[2022-01-18] MEDS: BUDESONIDE/FORMETEROL FUMARATE 80/4.5 mcg INHALER IH SCH (22:36)
[2022-01-18] MEDS: THIAMINE HCL 100 MG TABLET (FP) PO SCH (22:36)
[2022-01-18] MEDS: ATORVASTATIN CA 80 MG TABLET (FP) PO SCH (22:36)
[2022-01-18] MEDS: MELATONIN 5 MG TABLETS PO SCH (22:36)
[2022-01-18] MEDS: DIVALPROEX SODIUM 500 MG TABLET E.C. PO SCH (22:36)
[2022-01-19] MEDS: LORazepam 2 MG TABLET PO SCH ×4 (05:23→22:02)
[2022-01-19] MEDS: hydrOXYzine PAMOATE 25 MG CAPSULE (FP) PO SCH ×5 (05:23→22:02)
[2022-01-19] MEDS: FUROSEMIDE 40 MG TABLET (FP) PO SCH ×2 (05:23→15:46)
[2022-01-19] MEDS ORDERED: ASPIRIN 81 MG CHEWABLE TABLETS PO SCH (10:00)
[2022-01-19] MEDS ORDERED: SACUBITRIL/VALSARTAN 49 MG-51 MG TABLET PO SCH (10:00)
[2022-01-19] MEDS: ASPIRIN 81 MG CHEWABLE TABLETS PO SCH (10:21)
[2022-01-19] MEDS: amLODIPine BESYLATE 10 MG TABLET (FP) PO SCH (10:21)
[2022-01-19] MEDS: DIVALPROEX SODIUM 500 MG TABLET E.C. PO SCH ×2 (10:21→22:01)
[2022-01-19] MEDS: GABAPENTIN 100 MG CAPSULE PO SCH ×2 (10:21→22:02)
[2022-01-19] MEDS: CARVEDILOL 3.125 MG TABLET (FP) PO SCH ×2 (10:22→22:02)
[2022-01-19] MEDS: NAPROXEN 500 MG TABLET PO SCH ×2 (10:22→22:02)
[2022-01-19] MEDS: PRENATAL VITAMINS W/ FOLIC ACID TABLET (FP) PO SCH (11:05)
[2022-01-19] MEDS: SPIRONOLACTONE 25 MG TABLET PO SCH (11:05)
[2022-01-19] MEDS: BUDESONIDE/FORMETEROL FUMARATE 80/4.5 mcg INHALER IH SCH ×2 (11:05→22:04)
[2022-01-19 14:46] LABS: HEMATOCRIT 35.1 % (35.4-49); HEMOGLOBIN 11.5 GM/dL (11.7-16.9); MCH 31.9 pg (25.7-33.7); MCHC 32.7 g/dl (32.0-35.9); MEAN CELL VOLUME 97.6 fl (80-96); MEAN PLT VOLUME 9.4 fl (7.5-11.1); PLATELET COUNT 232 10^3/uL (134-434); RDW 16.3 % (11.9-15.9); WHITE BLOOD COUNT 3.9 K/mm3 (4.0-10.0)
[2022-01-19 15:20] LABS: ALBUMIN 3.6 g/dl (3.4-5.0); CALCIUM 8.9 mg/dL (8.5-10.1)
[2022-01-19 15:21] LABS: BLOOD UREA NITROGEN 21.7 mg/dL (7-18)
[2022-01-19 15:23] LABS: CREATININE 1.9 mg/dL (0.55-1.3)
[2022-01-19 15:25] LABS: BILIRUBIN,TOTAL 0.8 mg/dL (0.2-1); TOT PROT 6.6 g/dl (6.4-8.2)
[2022-01-19] MEDS: MELATONIN 5 MG TABLETS PO SCH (22:01)
[2022-01-19] MEDS: ATORVASTATIN CA 80 MG TABLET (FP) PO SCH (22:02)
[2022-01-19] MEDS: THIAMINE HCL 100 MG TABLET (FP) PO SCH (22:02)
[2022-01-20] MEDS: LORazepam 1 MG TABLET PO SCH ×4 (05:22→22:09)
[2022-01-20] MEDS: hydrOXYzine PAMOATE 25 MG CAPSULE (FP) PO SCH ×5 (05:23→22:09)
[2022-01-20] MEDS: FUROSEMIDE 40 MG TABLET (FP) PO SCH ×2 (05:23→15:48)
[2022-01-20] MEDS ORDERED: ALBUTEROL SO4 2.5/IPRATROPIUM 0.5 INH SOL 3 ML VIAL.NEB. NEB PRN (06:00)
[2022-01-20] MEDS: ASPIRIN 81 MG CHEWABLE TABLETS PO SCH (10:25)
[2022-01-20] MEDS: BUDESONIDE/FORMETEROL FUMARATE 80/4.5 mcg INHALER IH SCH ×2 (10:25→22:12)
[2022-01-20] MEDS: amLODIPine BESYLATE 10 MG TABLET (FP) PO SCH (10:26)
[2022-01-20] MEDS: NAPROXEN 500 MG TABLET PO SCH ×2 (10:26→22:09)
[2022-01-20] MEDS: CARVEDILOL 3.125 MG TABLET (FP) PO SCH ×2 (10:26→22:09)
[2022-01-20] MEDS: DIVALPROEX SODIUM 500 MG TABLET E.C. PO SCH ×2 (10:26→22:09)
[2022-01-20] MEDS: GABAPENTIN 100 MG CAPSULE PO SCH ×2 (10:26→22:10)
[2022-01-20] MEDS: PRENATAL VITAMINS W/ FOLIC ACID TABLET (FP) PO SCH (10:27)
[2022-01-20] MEDS: SPIRONOLACTONE 25 MG TABLET PO SCH (10:27)
[2022-01-20] MEDS: THIAMINE HCL 100 MG TABLET (FP) PO SCH (22:09)
[2022-01-20] MEDS: ATORVASTATIN CA 80 MG TABLET (FP) PO SCH (22:09)
[2022-01-20] MEDS: MELATONIN 5 MG TABLETS PO SCH (22:10)
[2022-01-21] MEDS ORDERED: LORazepam 0.5 MG TABLET PO PRN
[2022-01-21] MEDS: LORazepam 0.5 MG TABLET PO SCH ×3 (08:18→18:15)
[2022-01-21] MEDS: FUROSEMIDE 40 MG TABLET (FP) PO SCH ×2 (08:18→13:47)
[2022-01-21] MEDS: hydrOXYzine PAMOATE 25 MG CAPSULE (FP) PO SCH ×4 (08:19→18:15)
[2022-01-21] MEDS: BUDESONIDE/FORMETEROL FUMARATE 80/4.5 mcg INHALER IH SCH (10:04)
[2022-01-21] MEDS: amLODIPine BESYLATE 10 MG TABLET (FP) PO SCH (10:05)
[2022-01-21] MEDS: ASPIRIN 81 MG CHEWABLE TABLETS PO SCH (10:05)
[2022-01-21] MEDS: NAPROXEN 500 MG TABLET PO SCH (10:05)
[2022-01-21] MEDS: GABAPENTIN 100 MG CAPSULE PO SCH (10:05)
[2022-01-21] MEDS: DIVALPROEX SODIUM 500 MG TABLET E.C. PO SCH (10:05)
[2022-01-21] MEDS: CARVEDILOL 3.125 MG TABLET (FP) PO SCH (10:05)
[2022-01-21] MEDS: PRENATAL VITAMINS W/ FOLIC ACID TABLET (FP) PO SCH (10:06)
[2022-01-21] MEDS: SPIRONOLACTONE 25 MG TABLET PO SCH (10:09)
[2022-01-21 13:10] VITALS: BP 148/81; PULSE 90; TEMP 96.8
[2022-01-22] MEDS ORDERED: LORazepam 0.5 MG TABLET PO ONE (05:00)
== END 2022-01-21 17:05 | disposition home or self-care (01) | DRG 774 ==
LOC: YASAS 12:55 → Y3N 14:29
PROVIDERS: ADMIT Allergy & Immunology; ATTEND Allergy & Immunology
PROC: HZ2ZZZZ Detoxification Services for Substance Abuse Treatment (ICD-10-PCS; principal; 2022-01-18)
DX: F10.230 Alcohol dependence with withdrawal, uncomplicated (principal); F14.20 Cocaine dependence, uncomplicated; F19.24 Other psychoactive substance dependence with psychoactive substance-induced mood disorder; F39 Unspecified mood [affective] disorder; G40.909 Epilepsy, unspecified, not intractable, without status epilepticus; I11.0 Hypertensive heart disease with heart failure; I50.9 Heart failure, unspecified; N28.9 Disorder of kidney and ureter, unspecified; J43.0 Unilateral pulmonary emphysema [MacLeod's syndrome]; R74.8 Abnormal levels of other serum enzymes; Z95.0 Presence of cardiac pacemaker; Z86.19 Personal history of other infectious and parasitic diseases; Z88.0 Allergy status to penicillin; Z88.1 Allergy status to other antibiotic agents; Z91.012 Allergy to eggs; Z91.013 Allergy to seafood
CPT/HCPCS: 36415; 80053; 85027; 86593; 86780; 93005; 93010; C9803; U0003; U0005

== ENCOUNTER 2022-06-19 14:42 | Inpatient (IN) | payer OTHER ==
[2022-06-19 16:59] VITALS: BMI 28.5
[2022-06-19] MEDS ORDERED: ACETAMINOPHEN 325 MG TABLET (FP) PO PRN (19:57)
[2022-06-19] MEDS ORDERED: P-EPHED 60MG/TRIPROLIDI 2.5MG TABLET PO PRN (19:57)
[2022-06-19] MEDS ORDERED: LOPERAMIDE HCL 2 MG CAPSULE PO PRN (19:57)
[2022-06-19] MEDS ORDERED: MAGNESIUM CITRATE 300 ML BOTTLE PO PRN (19:57)
[2022-06-19] MEDS ORDERED: MAG HYDROX/AL HYDROX/SIMETH 30 ML UNIT-DOSE CUP PO PRN (19:57)
[2022-06-19] MEDS ORDERED: MAGNESIUM HYDROX 2400MG/30ML ORAL SUSPENSION 30 ML CUP PO PRN (19:57)
[2022-06-19] MEDS ORDERED: NICOTINE 10 MG CARTRIDGE (INHALER) IH PRN (19:57)
[2022-06-19] MEDS ORDERED: guaiFENesin 200 MG/10 ML 10 ML UNIT-DOSE CUPS PO PRN (19:57)
[2022-06-19] MEDS ORDERED: MELATONIN 5 MG TABLETS PO SCH (22:00)
[2022-06-19] MEDS ORDERED: THIAMINE HCL 100 MG TABLET (FP) PO SCH (22:00)
[2022-06-19] MEDS ORDERED: ALBUTEROL SO4 HFA INHALER IH PRN (22:45)
[2022-06-19] MEDS ORDERED: GABAPENTIN 100 MG CAPSULE PO ONE (22:48)
[2022-06-19] MEDS ORDERED: DIVALPROEX SODIUM 500 MG TABLET E.C. PO ONE (22:48)
[2022-06-19 23:00] VITALS: RESP 18
[2022-06-19] MEDS: BUDESONIDE/FORMETEROL FUMARATE 160/4.5 mcg INHALER IH SCH (23:22)
[2022-06-19] MEDS: CARVEDILOL 6.25 MG TABLET (FP) PO SCH (23:24)
[2022-06-19] MEDS: hydrOXYzine PAMOATE 25 MG CAPSULE (FP) PO SCH (23:24)
[2022-06-20] MEDS: SACUBITRIL/VALSARTAN 24 MG-26 MG TABLET PO SCH ×2 (00:22→10:57)
[2022-06-20] MEDS: hydrOXYzine PAMOATE 25 MG CAPSULE (FP) PO SCH ×2 (05:33→10:56)
[2022-06-20 09:25] VITALS: BP 163/99; PULSE 76; TEMP 97.7
[2022-06-20] MEDS ORDERED: PRENATAL VITAMINS W/ FOLIC ACID TABLET (FP) PO SCH (10:00)
[2022-06-20] MEDS ORDERED: NICOTINE 7 MG/24 HOURS TOPICAL PATCH TD SCH (10:00)
[2022-06-20] MEDS ORDERED: ASPIRIN COATED 81 MG TABLET.EC PO SCH (10:00)
[2022-06-20] MEDS: CARVEDILOL 6.25 MG TABLET (FP) PO SCH (10:56)
[2022-06-20] MEDS: BUDESONIDE/FORMETEROL FUMARATE 160/4.5 mcg INHALER IH SCH (10:57)
[2022-06-20 12:32] LABS: HEMATOCRIT 32.5 % (35.4-49); HEMOGLOBIN 10.8 GM/dL (11.7-16.9); MCH 32.2 pg (25.7-33.7); MCHC 33.3 g/dl (32.0-35.9); MEAN CELL VOLUME 96.9 fl (80-96); MEAN PLT VOLUME 9.1 fl (7.5-11.1); PLATELET COUNT 200 10^3/uL (134-434); RBC 3.35 M/mm3 (4.00-5.60); RDW 17.6 % (11.9-15.9); WHITE BLOOD COUNT 5.9 K/mm3 (4.0-10.0)
[2022-06-20 13:00] LABS: ALBUMIN 3.4 g/dl (3.4-5.0); BILIRUBIN,TOTAL 0.5 mg/dL (0.2-1); BLOOD UREA NITROGEN 18.6 mg/dL (7-18); CALCIUM 9.1 mg/dL (8.5-10.1); CREATININE 1.5 mg/dL (0.55-1.3); TOT PROT 6.5 g/dl (6.4-8.2)
[2022-06-20] MEDS ORDERED: ATORVASTATIN CA 80 MG TABLET (FP) PO SCH (22:00)
== END 2022-06-20 12:38 | disposition home or self-care (01) | DRG 774 ==
LOC: YASAS 14:42 → Y6N 20:34
PROVIDERS: ADMIT Allergy & Immunology; ATTEND Surgery
PROC: HZ2ZZZZ Detoxification Services for Substance Abuse Treatment (ICD-10-PCS; principal; 2022-06-19)
DX: F10.230 Alcohol dependence with withdrawal, uncomplicated (principal); F14.20 Cocaine dependence, uncomplicated; F12.20 Cannabis dependence, uncomplicated; F17.210 Nicotine dependence, cigarettes, uncomplicated; F19.24 Other psychoactive substance dependence with psychoactive substance-induced mood disorder; I11.0 Hypertensive heart disease with heart failure; I50.9 Heart failure, unspecified; J44.9 Chronic obstructive pulmonary disease, unspecified; Z95.810 Presence of automatic (implantable) cardiac defibrillator; Z88.0 Allergy status to penicillin; Z88.1 Allergy status to other antibiotic agents; Z87.891 Personal history of nicotine dependence; Z91.018 Allergy to other foods; Z91.012 Allergy to eggs
CPT/HCPCS: 36415; 80053; 85027; 86593; 86780; 87811; C9803-CS; U0003; U0005